=== PATIENT | female | born 1990 | race Caucasian/White ===

== ENCOUNTER → 2021-02-08 | Outpatient (CLI) | payer OTHER ==
[2021-02-09 07:43] LABS: Candida species (DNA Probe) Negative (NEGATIVE); G. vaginalis (DNA Probe) Negative (NEGATIVE); T. vaginalis (DNA Probe) Negative (NEGATIVE)
[2021-02-10 03:08] LABS: CHLAMYDIA TRACHOMATIS, NAA Negative (Negative)
== END | disposition home or self-care (01) ==
LOC: LAB 09:14 → LAB SHORT 17:27 → LAB 04-02 09:14
PROVIDERS: Nurse Practitioner
DX: Z11.3 Encounter for screening for infections with a predominantly sexual mode of transmission (principal)
CPT/HCPCS: 87480; 87491; 87510; 87591; 87660

== ENCOUNTER → 2021-02-15 | Outpatient (CLI) | payer OTHER | END | disposition home or self-care (01) | LOC: PLD 14:15 → LAB SHORT 14:15 | DX: N30.01 Acute cystitis with hematuria (principal) | CPT/HCPCS: 87077; 87086; 87186 ==

== ENCOUNTER 2022-08-25 09:09 | Emergency (ER) | payer OTHER ==
[~2022-08-25] VITALS: Ht 152.4 cm; Wt 61.2 kg
[2022-08-25 10:20] LABS: BASOPHILS ABSOLUTE AUTO 0.02 K/mm3 (0.00-0.23); BASOPHILS PERCENT AUTO 0 % (0-2); EOSINOPHILS PERCENT AUTO 0 % (0-6); Hematocrit 42.8 % (33.0-51.0); Hemoglobin 15.6 g/dL (11.5-16.0); IMMATURE GRAN ABSOLUTE AUTO 0.03 K/mm3 (0.00-0.10); IMMATURE GRAN PERCENT AUTO 0 % (0-1); LYMPHOCYTES ABSOLUTE AUTO 0.84 K/mm3 (0.84-5.20); LYMPHOCYTES PERCENT AUTO 8 % (21-46); MONOCYTES ABSOLUTE AUTO 0.65 K/mm3 (0.16-1.47); MONOCYTES PERCENT AUTO 6 % (4-13); Mean Corpuscular HGB 31.9 pg (26.0-34.0); Mean Corpuscular HGB Conc 36.4 g/dL (31.5-36.5); Mean Corpuscular Volume 88 fL (80-100); Mean Platelet Volume 12.3 fL (9.1-12.4); NEUTROPHILS ABSOLUTE AUTO 8.66 K/mm3 (1.96-9.15); NEUTROPHILS PERCENT AUTO 85 % (41-73); Platelet Count 230 K/mm3 (150-400); RDW Coefficient Variation 11.9 % (11.7-14.2); RDW Standard Deviation 38.3 fL (35.1-46.3); Red Blood Cell Count 4.89 M/mm3 (3.80-5.20)
[2022-08-25 10:40] LABS: Albumin, Blood 4.2 g/dL (3.4-5.0); Albumin/Globulin Ratio 1.4 (0.8-1.8); Bilirubin, Total 1.5 mg/dL (0.1-1.0); Bun/Creatinine Ratio 29.7 (12.0-20.0); Calcium, Blood 8.9 mg/dL (8.5-10.1); Creatinine, Blood 0.61 mg/dL (0.40-1.00); Globulin, Blood 3.1 g/dL (2.2-4.0); Magnesium, Blood 2.3 mg/dL (1.6-2.4); Potassium, Blood 3.8 mmol/L (3.5-5.5); Total Protein, Blood 7.3 g/dL (6.4-8.2)
[2022-08-25] MEDS ORDERED: ONDA4ODT MM (12:15)
== END 2022-08-25 12:31 | disposition home or self-care (01) ==
LOC: ER 09:09
PROVIDERS: Student in an Organized Health Care Education/Training Program
DX: R11.2 Nausea with vomiting, unspecified (principal)
CPT/HCPCS: 36415; 80053; 83735; 84703; 85025; 96361; 96374; 99283-25; J1790; J7030

== ENCOUNTER 2022-08-28 07:26 | Emergency (ER) | payer OTHER ==
[~2022-08-28] VITALS: Ht 152.4 cm; Wt 61.2 kg
[~2022-08-28 07:26] MED LIST: ONDA4ODT MM
[2022-08-28 08:02] LABS: BASOPHILS ABSOLUTE AUTO 0.03 K/mm3 (0.00-0.23); BASOPHILS PERCENT AUTO 0 % (0-2); EOSINOPHILS ABSOLUTE AUTO 0.04 K/mm3 (0.00-0.68); EOSINOPHILS PERCENT AUTO 1 % (0-6); Hematocrit 42.5 % (33.0-51.0); Hemoglobin 15.4 g/dL (11.5-16.0); IMMATURE GRAN ABSOLUTE AUTO 0.02 K/mm3 (0.00-0.10); IMMATURE GRAN PERCENT AUTO 0 % (0-1); LYMPHOCYTES ABSOLUTE AUTO 1.57 K/mm3 (0.84-5.20); LYMPHOCYTES PERCENT AUTO 19 % (21-46); MONOCYTES PERCENT AUTO 7 % (4-13); Mean Corpuscular HGB 31.8 pg (26.0-34.0); Mean Corpuscular HGB Conc 36.2 g/dL (31.5-36.5); Mean Corpuscular Volume 88 fL (80-100); Mean Platelet Volume 12.4 fL (9.1-12.4); NEUTROPHILS ABSOLUTE AUTO 6.02 K/mm3 (1.96-9.15); NEUTROPHILS PERCENT AUTO 73 % (41-73); Platelet Count 221 K/mm3 (150-400); RDW Coefficient Variation 11.9 % (11.7-14.2); RDW Standard Deviation 38.1 fL (35.1-46.3); Red Blood Cell Count 4.85 M/mm3 (3.80-5.20); White Blood Cell Count 8.28 K/mm3 (4.00-11.30)
[2022-08-28 08:23] LABS: Albumin, Blood 3.9 g/dL (3.4-5.0); Albumin/Globulin Ratio 1.3 (0.8-1.8); Bilirubin, Total 1.6 mg/dL (0.1-1.0); Bun/Creatinine Ratio 19.7 (12.0-20.0); Calcium, Blood 8.8 mg/dL (8.5-10.1); Creatinine, Blood 0.76 mg/dL (0.40-1.00); Globulin, Blood 2.9 g/dL (2.2-4.0); Total Protein, Blood 6.8 g/dL (6.4-8.2)
[2022-08-28] MEDS ORDERED: PROM25 PO (08:31)
== END 2022-08-28 09:26 | disposition home or self-care (01) ==
LOC: ER 07:26
PROVIDERS: Emergency Medicine
DX: R11.2 Nausea with vomiting, unspecified (principal); F12.90 Cannabis use, unspecified, uncomplicated; E87.6 Hypokalemia; Z79.899 Other long term (current) drug therapy
CPT/HCPCS: 36415; 80053; 85025; 96374; 99283-25; A9270; J2550; J7030

== ENCOUNTER 2023-04-16 07:14 | Emergency (ER) | payer OTHER ==
[~2023-04-16] VITALS: Ht 152.4 cm; Wt 56.7 kg
[~2023-04-16 07:14] MED LIST changes: +PROM25 PO
[2023-04-16 07:55] LABS: BASOPHILS ABSOLUTE AUTO 0.02 K/mm3 (0.00-0.23); BASOPHILS PERCENT AUTO 0 % (0-2); EOSINOPHILS PERCENT AUTO 0 % (0-6); Hematocrit 41.7 % (33.0-51.0); Hemoglobin 15.1 g/dL (11.5-16.0); IMMATURE GRAN ABSOLUTE AUTO 0.09 K/mm3 (0.00-0.10); IMMATURE GRAN PERCENT AUTO 0 % (0-1); LYMPHOCYTES PERCENT AUTO 3 % (21-46); MONOCYTES ABSOLUTE AUTO 0.74 K/mm3 (0.16-1.47); MONOCYTES PERCENT AUTO 4 % (4-13); Mean Corpuscular HGB 31.5 pg (26.0-34.0); Mean Corpuscular HGB Conc 36.2 g/dL (31.5-36.5); Mean Corpuscular Volume 87 fL (80-100); Mean Platelet Volume 12.7 fL (9.1-12.4); NEUTROPHILS ABSOLUTE AUTO 18.76 K/mm3 (1.96-9.15); NEUTROPHILS PERCENT AUTO 93 % (41-73); Platelet Count 223 K/mm3 (150-400); RDW Coefficient Variation 11.9 % (11.7-14.2); White Blood Cell Count 20.21 K/mm3 (4.00-11.30)
[2023-04-16 08:14] LABS: Albumin, Blood 4.4 g/dL (3.4-5.0); Albumin/Globulin Ratio 1.4 (0.8-1.8); Bun/Creatinine Ratio 33.6 (12.0-20.0); Calcium, Blood 9.7 mg/dL (8.5-10.1); Creatinine, Blood 0.66 mg/dL (0.40-1.00); Globulin, Blood 3.2 g/dL (2.2-4.0); Potassium, Blood 3.7 mmol/L (3.5-5.5); Total Protein, Blood 7.6 g/dL (6.4-8.2)
[2023-04-16] MEDS ORDERED: ONDA4ODT MM (10:12)
[2023-04-16 10:27] VITALS: BP 96/54
== END 2023-04-16 10:28 | disposition home or self-care (01) ==
LOC: ER 07:14
PROVIDERS: Student in an Organized Health Care Education/Training Program
DX: R11.2 Nausea with vomiting, unspecified (principal)
CPT/HCPCS: 80053; 83690; 84703; 85025; 96374; 96375; 99284-25; J1630; J2405; J7030

== ENCOUNTER 2023-04-20 04:47 | Emergency (ER) | payer OTHER ==
[~2023-04-20] VITALS: Ht 152.4 cm; Wt 54.4 kg
[2023-04-20 06:42] LABS: BASOPHILS ABSOLUTE AUTO 0.02 K/mm3 (0.00-0.23); BASOPHILS PERCENT AUTO 0 % (0-2); EOSINOPHILS ABSOLUTE AUTO 0.01 K/mm3 (0.00-0.68); EOSINOPHILS PERCENT AUTO 0 % (0-6); Hematocrit 43.1 % (33.0-51.0); Hemoglobin 15.9 g/dL (11.5-16.0); IMMATURE GRAN ABSOLUTE AUTO 0.03 K/mm3 (0.00-0.10); IMMATURE GRAN PERCENT AUTO 0 % (0-1); LYMPHOCYTES ABSOLUTE AUTO 1.15 K/mm3 (0.84-5.20); LYMPHOCYTES PERCENT AUTO 13 % (21-46); MONOCYTES ABSOLUTE AUTO 0.59 K/mm3 (0.16-1.47); MONOCYTES PERCENT AUTO 7 % (4-13); Mean Corpuscular HGB 31.9 pg (26.0-34.0); Mean Corpuscular HGB Conc 36.9 g/dL (31.5-36.5); Mean Corpuscular Volume 87 fL (80-100); Mean Platelet Volume 12.5 fL (9.1-12.4); NEUTROPHILS ABSOLUTE AUTO 6.96 K/mm3 (1.96-9.15); NEUTROPHILS PERCENT AUTO 80 % (41-73); Platelet Count 256 K/mm3 (150-400); RDW Coefficient Variation 11.8 % (11.7-14.2); RDW Standard Deviation 36.8 fL (35.1-46.3); Red Blood Cell Count 4.98 M/mm3 (3.80-5.20); White Blood Cell Count 8.76 K/mm3 (4.00-11.30)
[2023-04-20 07:05] LABS: Albumin, Blood 4.3 g/dL (3.4-5.0); Albumin/Globulin Ratio 1.3 (0.8-1.8); Bilirubin, Total 1.7 mg/dL (0.1-1.0); Bun/Creatinine Ratio 25.2 (12.0-20.0); Creatinine, Blood 0.64 mg/dL (0.40-1.00); Globulin, Blood 3.2 g/dL (2.2-4.0); Potassium, Blood 3.3 mmol/L (3.5-5.5); Total Protein, Blood 7.5 g/dL (6.4-8.2)
[2023-04-20] MEDS ORDERED: PROM25 PO (09:38)
[2023-04-20 09:45] VITALS: BP 112/73
== END 2023-04-20 10:15 | disposition home or self-care (01) ==
LOC: ER 04:47
PROVIDERS: Emergency Medicine
DX: R11.2 Nausea with vomiting, unspecified (principal); E87.6 Hypokalemia; F17.200 Nicotine dependence, unspecified, uncomplicated
CPT/HCPCS: 80053; 84703; 85025; A9270; J2405; J7030

== ENCOUNTER 2023-05-07 08:47 | Emergency (ER) | payer OTHER ==
[~2023-05-07] VITALS: Ht 152.4 cm; Wt 53.5 kg
[2023-05-07 10:31] LABS: BASOPHILS ABSOLUTE AUTO 0.02 K/mm3 (0.00-0.23); BASOPHILS PERCENT AUTO 0 % (0-2); EOSINOPHILS PERCENT AUTO 0 % (0-6); Hematocrit 36.8 % (33.0-51.0); Hemoglobin 13.6 g/dL (11.5-16.0); IMMATURE GRAN ABSOLUTE AUTO 0.02 K/mm3 (0.00-0.10); IMMATURE GRAN PERCENT AUTO 0 % (0-1); LYMPHOCYTES ABSOLUTE AUTO 0.76 K/mm3 (0.84-5.20); LYMPHOCYTES PERCENT AUTO 10 % (21-46); MONOCYTES ABSOLUTE AUTO 0.29 K/mm3 (0.16-1.47); MONOCYTES PERCENT AUTO 4 % (4-13); Mean Corpuscular HGB 31.7 pg (26.0-34.0); Mean Corpuscular Volume 86 fL (80-100); Mean Platelet Volume 12.1 fL (9.1-12.4); NEUTROPHILS ABSOLUTE AUTO 6.53 K/mm3 (1.96-9.15); NEUTROPHILS PERCENT AUTO 86 % (41-73); Platelet Count 211 K/mm3 (150-400); RDW Coefficient Variation 11.9 % (11.7-14.2); Red Blood Cell Count 4.29 M/mm3 (3.80-5.20); White Blood Cell Count 7.62 K/mm3 (4.00-11.30)
[2023-05-07 10:40] LABS: U Amphetamine Screen Not Detected; U Barbituate Screen Not Detected; U Benzodiazapine Screen Not Detected; U Buprenorphine Screen Not Detected; U Cannabinoids Screen DETECTED; U Cocaine Screen Not Detected; U Methadone Screen Not Detected; U Methamphetamine Screen Not Detected; U Opiates Screen Not Detected; U Oxycodone Screen Not Detected; U Phencyclidine Screen Not Detected; U Propoxyphene Screen Not Detected
[2023-05-07 11:00] VITALS: BP 120/84
[2023-05-07 11:07] LABS: Albumin/Globulin Ratio 1.5 (0.8-1.8); Bilirubin, Total 2.1 mg/dL (0.1-1.0); Bun/Creatinine Ratio 14.2 (12.0-20.0); Creatinine, Blood 0.57 mg/dL (0.40-1.00); Globulin, Blood 2.6 g/dL (2.2-4.0); Potassium, Blood 3.6 mmol/L (3.5-5.5); Total Protein, Blood 6.6 g/dL (6.4-8.2)
[2023-05-07] MEDS ORDERED: ONDA4ODT MM (11:57)
== END 2023-05-07 12:10 | disposition home or self-care (01) ==
LOC: ER 08:47
PROVIDERS: Emergency Medicine
DX: R11.2 Nausea with vomiting, unspecified (principal); F12.10 Cannabis abuse, uncomplicated
CPT/HCPCS: 80053; 81025; 83690; 85025; J2405; J7030

== ENCOUNTER 2023-05-12 11:42 | Emergency (ER) | payer OTHER ==
[~2023-05-12] VITALS: Ht 152.4 cm; Wt 68.0 kg
[2023-05-12 12:26] LABS: Albumin, Blood 4.4 g/dL (3.4-5.0); Albumin/Globulin Ratio 1.6 (0.8-1.8); Bilirubin, Total 2.4 mg/dL (0.1-1.0); Bun/Creatinine Ratio 15.4 (12.0-20.0); Calcium, Blood 9.9 mg/dL (8.5-10.1); Creatinine, Blood 0.65 mg/dL (0.40-1.00); Globulin, Blood 2.8 g/dL (2.2-4.0); Total Protein, Blood 7.2 g/dL (6.4-8.2)
[2023-05-12 13:30] VITALS: BP 129/90
[2023-05-12 13:40] LABS: BASOPHILS ABSOLUTE AUTO 0.03 K/mm3 (0.00-0.23); BASOPHILS PERCENT AUTO 1 % (0-2); EOSINOPHILS ABSOLUTE AUTO 0.01 K/mm3 (0.00-0.68); EOSINOPHILS PERCENT AUTO 0 % (0-6); Hematocrit 43.9 % (33.0-51.0); Hemoglobin 16.2 g/dL (11.5-16.0); IMMATURE GRAN ABSOLUTE AUTO 0.02 K/mm3 (0.00-0.10); IMMATURE GRAN PERCENT AUTO 0 % (0-1); LYMPHOCYTES ABSOLUTE AUTO 0.68 K/mm3 (0.84-5.20); LYMPHOCYTES PERCENT AUTO 11 % (21-46); MONOCYTES ABSOLUTE AUTO 0.27 K/mm3 (0.16-1.47); MONOCYTES PERCENT AUTO 4 % (4-13); Mean Corpuscular HGB 31.8 pg (26.0-34.0); Mean Corpuscular HGB Conc 36.9 g/dL (31.5-36.5); Mean Corpuscular Volume 86 fL (80-100); Mean Platelet Volume 11.7 fL (9.1-12.4); NEUTROPHILS ABSOLUTE AUTO 5.49 K/mm3 (1.96-9.15); NEUTROPHILS PERCENT AUTO 84 % (41-73); Platelet Count 215 K/mm3 (150-400); RDW Coefficient Variation 12.1 % (11.7-14.2)
[2023-05-12] MEDS ORDERED: PROM25 PO (14:43)
== END 2023-05-12 15:09 | disposition home or self-care (01) ==
LOC: ER 11:42
PROVIDERS: Emergency Medicine
DX: R11.2 Nausea with vomiting, unspecified (principal); F12.90 Cannabis use, unspecified, uncomplicated; E86.0 Dehydration; Z79.899 Other long term (current) drug therapy
CPT/HCPCS: 36415; 80053; 83690; 85025; 96361; 96374; 96375; 99284-25; J1790; J2405; J7030

== ENCOUNTER 2024-01-11 09:39 | Emergency (ER) | payer OTHER ==
[~2024-01-11] VITALS: Ht 152.4 cm; Wt 63.5 kg
[2024-01-11 10:36] LABS: BASOPHILS ABSOLUTE AUTO 0.02 K/mm3 (0.00-0.23); BASOPHILS PERCENT AUTO 0 % (0-2); EOSINOPHILS PERCENT AUTO 0 % (0-6); Hematocrit 44.6 % (33.0-51.0); Hemoglobin 16.6 g/dL (11.5-16.0); IMMATURE GRAN ABSOLUTE AUTO 0.03 K/mm3 (0.00-0.10); IMMATURE GRAN PERCENT AUTO 0 % (0-1); LYMPHOCYTES ABSOLUTE AUTO 0.73 K/mm3 (0.84-5.20); LYMPHOCYTES PERCENT AUTO 5 % (21-46); MONOCYTES ABSOLUTE AUTO 0.61 K/mm3 (0.16-1.47); MONOCYTES PERCENT AUTO 4 % (4-13); Mean Corpuscular HGB 31.9 pg (26.0-34.0); Mean Corpuscular HGB Conc 37.2 g/dL (31.5-36.5); Mean Corpuscular Volume 86 fL (80-100); Mean Platelet Volume 11.7 fL (9.1-12.4); NEUTROPHILS ABSOLUTE AUTO 12.39 K/mm3 (1.96-9.15); NEUTROPHILS PERCENT AUTO 90 % (41-73); Platelet Count 300 K/mm3 (150-400); RDW Coefficient Variation 12.2 % (11.7-14.2); Red Blood Cell Count 5.21 M/mm3 (3.80-5.20); White Blood Cell Count 13.78 K/mm3 (4.00-11.30)
[2024-01-11 10:44] LABS: Source, Urine Clean Catch
[2024-01-11 10:54] LABS: Albumin, Blood 4.5 g/dL (3.4-5.0); Albumin/Globulin Ratio 1.2 (0.8-1.8); Bilirubin, Total 2.3 mg/dL (0.1-1.0); Calcium, Blood 9.7 mg/dL (8.5-10.1); Creatinine, Blood 0.55 mg/dL (0.40-1.00); Globulin, Blood 3.8 g/dL (2.2-4.0); Potassium, Blood 3.4 mmol/L (3.5-5.5); Total Protein, Blood 8.3 g/dL (6.4-8.2)
[2024-01-11 10:57] LABS: Appearance, Urine Hazy (Clear); Bilirubin, Urine Neg (Neg); Blood, Urine 3+ (Neg); Color, Urine Yellow (P-Yellow); Glucose Qualitative, Urine Neg (Neg); Ketones, Urine 4+ (Neg); Leukocyte Esterase, Urine 1+ (Neg); Nitrite, Urine Neg (Neg); Protein, Urine 3+ (Neg); Urobilinogen, Urine NORM (Normal)
[2024-01-11 11:01] LABS: Bacteria Many /hpf; Mucus Heavy (0-Heavy); Squamous Epithelial Cells Many /hpf (Few)
[2024-01-11] MEDS ORDERED: NS 1,000 ML IV SCH (11:05)
[2024-01-11] MEDS ORDERED: Famotidine 10 MG/ML 2ML Vial IV ONE (11:05)
[2024-01-11] MEDS ORDERED: Prochlorperazine Edisylate 10 mg Vial IV ONE (11:05)
[2024-01-11] MEDS ORDERED: METO10 PO (11:57)
[2024-01-11 12:21] VITALS: BP 123/82
== END 2024-01-11 12:21 | disposition home or self-care (01) ==
LOC: ER 09:39
PROVIDERS: Student in an Organized Health Care Education/Training Program
DX: R11.2 Nausea with vomiting, unspecified (principal); E86.0 Dehydration; F12.90 Cannabis use, unspecified, uncomplicated
CPT/HCPCS: 80053; 81001; 81025; 83690; 85025; 87086; 96361; 96374; 96375; 99284-25; J0780; J7030

== ENCOUNTER 2024-09-17 08:46 | Emergency (ER) | payer OTHER ==
[~2024-09-17] VITALS: Ht 152.4 cm; Wt 68.0 kg
[~2024-09-17 08:46] MED LIST changes: +METO10 PO; +Nitrofurantoin100 M1 PO
[2024-09-17] MEDS ORDERED: Lactated Ringer's 1,000 ML IV ONE (10:00)
[2024-09-17] MEDS ORDERED: Droperidol 5 mg/2 ml Vial IV ONE ×2 (10:00→13:20)
[2024-09-17] MEDS ORDERED: PROP10 PO (10:00)
[2024-09-17 10:44] LABS: Albumin, Blood 4.5 g/dL (3.4-5.0); Albumin/Globulin Ratio 1.5 (0.8-1.8); Bilirubin, Total 1.9 mg/dL (0.1-1.0); Bun/Creatinine Ratio 33.9 (12.0-20.0); Calcium, Blood 9.7 mg/dL (8.5-10.1); Creatinine, Blood 0.62 mg/dL (0.40-1.00); Potassium, Blood 3.1 mmol/L (3.5-5.5); Total Protein, Blood 7.5 g/dL (6.4-8.2)
[2024-09-17 11:06] LABS: BASOPHILS ABSOLUTE AUTO 0.03 K/mm3 (0.00-0.23); BASOPHILS PERCENT AUTO 0 % (0-2); EOSINOPHILS PERCENT AUTO 0 % (0-6); Hemoglobin 15.3 g/dL (11.5-16.0); IMMATURE GRAN ABSOLUTE AUTO 0.05 K/mm3 (0.00-0.10); IMMATURE GRAN PERCENT AUTO 0 % (0-1); LYMPHOCYTES PERCENT AUTO 7 % (21-46); MONOCYTES ABSOLUTE AUTO 0.77 K/mm3 (0.16-1.47); MONOCYTES PERCENT AUTO 6 % (4-13); Mean Corpuscular HGB 31.5 pg (26.0-34.0); Mean Corpuscular HGB Conc 37.3 g/dL (31.5-36.5); Mean Corpuscular Volume 84 fL (80-100); Mean Platelet Volume 12.8 fL (9.1-12.4); NEUTROPHILS ABSOLUTE AUTO 10.46 K/mm3 (1.96-9.15); NEUTROPHILS PERCENT AUTO 86 % (41-73); Platelet Count 222 K/mm3 (150-400); RDW Standard Deviation 36.6 fL (35.1-46.3); Red Blood Cell Count 4.86 M/mm3 (3.80-5.20); White Blood Cell Count 12.11 K/mm3 (4.00-11.30)
[2024-09-17] MEDS ORDERED: Potassium Chloride 20 MEQ/15 ML UDC PO ONE (11:55)
[2024-09-17] MEDS ORDERED: Metoclopramide HCl 5MG / ML 2ML Vial IV ONE (11:55)
[2024-09-17 12:13] LABS: Source, Urine Clean Catch
[2024-09-17 12:43] LABS: Appearance, Urine Clear (Clear); Bilirubin, Urine Neg (Neg); Blood, Urine 1+ (Neg); Color, Urine Yellow (P-Yellow); Glucose Qualitative, Urine Neg (Neg); Ketones, Urine 4+ (Neg); Leukocyte Esterase, Urine Neg (Neg); Nitrite, Urine Neg (Neg); Protein, Urine 2+ (Neg); Specific Gravity, Urine 1.015 (1.003-1.022); Urobilinogen, Urine 1+ (Normal); pH, Urine 6.5 (5.0-8.0)
[2024-09-17 13:20] LABS: Bacteria Rare /hpf; Mucus Light (0-Heavy); Squamous Epithelial Cells Few /hpf (Few); White Blood Cells, Urine 0-2 /hpf (0-5)
[2024-09-17 14:15] VITALS: BP 121/75
[2024-09-17] MEDS ORDERED: METO5A PO (14:16)
== END 2024-09-17 14:30 | disposition home or self-care (01) ==
LOC: ER 08:46
PROVIDERS: Student in an Organized Health Care Education/Training Program
DX: R11.2 Nausea with vomiting, unspecified (principal); F12.10 Cannabis abuse, uncomplicated; F17.200 Nicotine dependence, unspecified, uncomplicated; Z79.899 Other long term (current) drug therapy
CPT/HCPCS: 80053; 81001; 81025; 83690; 85025; 96361; 96374; 96375; 96376; 99284-25; A9270; J1790; J2765; J7120

== ENCOUNTER 2024-09-28 18:55 | Emergency (ER) | payer OTHER ==
[~2024-09-28] VITALS: Ht 152.4 cm; Wt 65.8 kg
[~2024-09-28 18:55] MED LIST changes: +METO5A PO; +PROP10 PO
[2024-09-28] MEDS ORDERED: Ondansetron HCl 2 MG / ML 2ML Vial IV PRN (19:45)
[2024-09-28 20:31] LABS: BASOPHILS ABSOLUTE AUTO 0.03 K/mm3 (0.00-0.23); BASOPHILS PERCENT AUTO 0 % (0-2); EOSINOPHILS ABSOLUTE AUTO 0.01 K/mm3 (0.00-0.68); EOSINOPHILS PERCENT AUTO 0 % (0-6); Hematocrit 41.4 % (33.0-51.0); IMMATURE GRAN ABSOLUTE AUTO 0.06 K/mm3 (0.00-0.10); IMMATURE GRAN PERCENT AUTO 1 % (0-1); LYMPHOCYTES ABSOLUTE AUTO 0.38 K/mm3 (0.84-5.20); LYMPHOCYTES PERCENT AUTO 3 % (21-46); MONOCYTES PERCENT AUTO 1 % (4-13); Mean Corpuscular HGB 32.1 pg (26.0-34.0); Mean Corpuscular HGB Conc 36.2 g/dL (31.5-36.5); Mean Corpuscular Volume 89 fL (80-100); Mean Platelet Volume 12.4 fL (9.1-12.4); NEUTROPHILS ABSOLUTE AUTO 12.48 K/mm3 (1.96-9.15); NEUTROPHILS PERCENT AUTO 96 % (41-73); Platelet Count 196 K/mm3 (150-400); RDW Standard Deviation 38.5 fL (35.1-46.3); Red Blood Cell Count 4.68 M/mm3 (3.80-5.20); White Blood Cell Count 13.06 K/mm3 (4.00-11.30)
[2024-09-28 20:52] LABS: Albumin, Blood 4.3 g/dL (3.4-5.0); Albumin/Globulin Ratio 1.4 (0.8-1.8); Bun/Creatinine Ratio 12.7 (12.0-20.0); Calcium, Blood 9.4 mg/dL (8.5-10.1); Creatinine, Blood 0.71 mg/dL (0.40-1.00); Potassium, Blood 4.4 mmol/L (3.5-5.5); Total Protein, Blood 7.3 g/dL (6.4-8.2)
[2024-09-28] MEDS ORDERED: NS 1,000 ML IV SCH (22:20)
[2024-09-28] MEDS ORDERED: Metoclopramide HCl 5MG / ML 2ML Vial IV ONE (22:25)
[2024-09-28 22:40] LABS: Source, Urine Clean Catch
[2024-09-28 22:43] LABS: Bilirubin, Urine Neg (Neg); Blood, Urine 2+ (Neg); Glucose Qualitative, Urine Neg (Neg); Ketones, Urine 4+ (Neg); Leukocyte Esterase, Urine 1+ (Neg); Nitrite, Urine Neg (Neg); Protein, Urine 2+ (Neg); Specific Gravity, Urine 1.025 (1.003-1.022); Urobilinogen, Urine NORM (Normal)
[2024-09-28 22:45] LABS: Appearance, Urine Clear (Clear); Color, Urine Yellow (P-Yellow)
[2024-09-28 22:51] LABS: Amorphous Light (0-Heavy); Bacteria Mod /hpf; Mucus Mod (0-Heavy); Red Blood Cells, Urine 0-2 /hpf (0-2); Squamous Epithelial Cells Mod /hpf (Few)
[2024-09-28] MEDS ORDERED: Prochlorperazin10 MG PO (23:05)
[2024-09-28] MEDS ORDERED: RX Prepack 2 Tabs Ondansetron ODT 4MG UD ONE (23:05)
[2024-09-28] MEDS ORDERED: Prochlorperazine Edisylate 10 mg Vial IV ONE ×2 (23:05)
[2024-09-28 23:43] VITALS: BP 138/80
== END 2024-09-28 23:42 | disposition home or self-care (01) ==
LOC: ER 18:55
PROVIDERS: Emergency Medicine
DX: K29.70 Gastritis, unspecified, without bleeding (principal); N39.0 Urinary tract infection, site not specified; F17.200 Nicotine dependence, unspecified, uncomplicated; Z79.2 Long term (current) use of antibiotics; Z79.899 Other long term (current) drug therapy
CPT/HCPCS: 80053; 81001; 83690; 85025; 96361; 96374; 96375; 99283-25; A9270; J0780; J2405; J2765; J7030

== ENCOUNTER 2024-11-05 08:46 | Emergency (ER) | payer OTHER ==
[~2024-11-05] VITALS: Ht 152.4 cm; Wt 61.2 kg
[~2024-11-05 08:46] MED LIST changes: +Prochlorperazin10 MG PO
[2024-11-05 10:16] LABS: BASOPHILS ABSOLUTE AUTO 0.03 K/mm3 (0.00-0.23); BASOPHILS PERCENT AUTO 0 % (0-2); EOSINOPHILS PERCENT AUTO 0 % (0-6); Hemoglobin 15.4 g/dL (11.5-16.0); IMMATURE GRAN ABSOLUTE AUTO 0.02 K/mm3 (0.00-0.10); IMMATURE GRAN PERCENT AUTO 0 % (0-1); LYMPHOCYTES ABSOLUTE AUTO 0.87 K/mm3 (0.84-5.20); LYMPHOCYTES PERCENT AUTO 12 % (21-46); MONOCYTES ABSOLUTE AUTO 0.41 K/mm3 (0.16-1.47); MONOCYTES PERCENT AUTO 6 % (4-13); Mean Corpuscular HGB Conc 36.7 g/dL (31.5-36.5); Mean Corpuscular Volume 87 fL (80-100); Mean Platelet Volume 12.1 fL (9.1-12.4); NEUTROPHILS ABSOLUTE AUTO 5.81 K/mm3 (1.96-9.15); NEUTROPHILS PERCENT AUTO 81 % (41-73); Platelet Count 246 K/mm3 (150-400); RDW Coefficient Variation 12.3 % (11.7-14.2); RDW Standard Deviation 39.5 fL (35.1-46.3); Red Blood Cell Count 4.81 M/mm3 (3.80-5.20); White Blood Cell Count 7.14 K/mm3 (4.00-11.30)
[2024-11-05 10:50] LABS: Albumin, Blood 4.1 g/dL (3.4-5.0); Albumin/Globulin Ratio 1.4 (0.8-1.8); Bilirubin, Total 1.8 mg/dL (0.1-1.0); Bun/Creatinine Ratio 14.4 (12.0-20.0); Calcium, Blood 9.9 mg/dL (8.5-10.1); Creatinine, Blood 0.62 mg/dL (0.40-1.00); Potassium, Blood 3.7 mmol/L (3.5-5.5); Total Protein, Blood 7.1 g/dL (6.4-8.2)
[2024-11-05] MEDS ORDERED: ONDA4 PO (11:55)
[2024-11-05] MEDS ORDERED: NS 1,000 ML IV SCH (11:55)
[2024-11-05] MEDS ORDERED: Droperidol 5 mg/2 ml Vial IV ONE (11:55)
[2024-11-05 13:01] VITALS: BP 109/77
== END 2024-11-05 13:43 | disposition home or self-care (01) ==
LOC: ER 08:46
PROVIDERS: Student in an Organized Health Care Education/Training Program
DX: R11.2 Nausea with vomiting, unspecified (principal); R79.89 Other specified abnormal findings of blood chemistry; F17.200 Nicotine dependence, unspecified, uncomplicated
CPT/HCPCS: 80053; 81025; 83690; 85025; 96361; 96374; 99284-25; J1790; J7030